=== PATIENT | male | born 1995 | race Two or more races ===

== ENCOUNTER 2016-12-30 21:44 | Emergency (ER) | payer SELFPAY ==
--- NOTE | 2016-12-31 01:30 | ER Document Report ---
ED General - General Chief Complaint: Skin Problem Stated Complaint: FACIAL INJURY Notes: Patient is 21-year-old male who presents with 2 months of a rash over the bilateral face. Describes the area as having a burning, constant sensation. He has tried [id number] creams without improvement. Nothing worsens the symptoms. States he's intermittently had these symptoms for the past several years. He has not had any fever, vomiting, or constitutional symptoms. He has not seen a primary care doctor regarding today's concerns. TRAVEL OUTSIDE OF THE [place] IN LAST 30 DAYS: No - Related Data Allergies/Adverse Reactions: No Known Allergies Allergy (Unverified 12/30/16 21:58) Past Medical History - General Information source: Patient - Social History Smoking Status: Never Smoker Frequency of alcohol use: None Drug Abuse: None Lives with: Family Family History: Reviewed & Not Pertinent Patient has suicidal ideation: No Patient has homicidal ideation: No Renal/ Medical History: Denies: Hx Peritoneal Dialysis Review of Systems - Review of Systems Notes: Constitutional: Negative for fever. HENT: Negative for sore throat. Eyes: Negative for visual changes. Cardiovascular: Negative for chest pain. Respiratory: Negative for shortness of breath. Gastrointestinal: Negative for abdominal pain, vomiting or diarrhea. Genitourinary: Negative for dysuria. Musculoskeletal: Negative for back pain. Skin: Positive for rash. Neurological: Negative for headaches, weakness or numbness. 10 point ROS negative except as marked above and in HPI. Physical Exam - Vital signs Vitals: Temp Pulse Resp BP Pulse Ox 98.3 F 56 L 16 115/71 100 12/30/16 21:58 12/30/16 21:58 12/30/16 21:58 12/30/16 21:58 12/30/16 21:58 Interpretation: Normal Notes: PHYSICAL EXAMINATION: GENERAL: Well-appearing, well-nourished and in no acute distress. HEAD: Atraumatic, normocephalic. EYES: sclera anicteric, conjunctiva are normal. ENT: Moist mucous membranes. NECK: Normal range of motion LUNGS: Normal work of breathing HEART: 2+ radial pulses bilaterally EXTREMITIES: no pitting or edema. No cyanosis. NEUROLOGICAL: No focal neurological deficits. Moves all extremities spontaneously and on command. PSYCH: Normal mood, normal affect. SKIN: Warm, Dry, normal turgor, papules over the bilateral cheeks and left forehead with associated erythema Course - Re-evaluation Re-evalutation: 12/31/16 01:31 Patient presents with a rash over his bilateral face, nostrils and forehead consistent with likely cutaneous acne with associated inflammation. He is otherwise well appearance, no additional findings on exam. Will trial a course of triamcinolone and I have instructed the patient on handwashing and not to pick the affected areas.At this time will discharge with return precautions and follow-up recommendations. Verbal discharge instructions given a the bedside and opportunity for questions given. Medication warnings reviewed. Patient is in agreement with this plan and has verbalized understanding of return precautions and the need for primary care follow-up in the next 24-72 hours. - Vital Signs Vital signs: Temp Pulse Resp BP Pulse Ox 98.3 F 56 L 16 115/71 100 12/30/16 21:58 12/30/16 21:58 12/30/16 21:58 12/30/16 21:58 12/30/16 21:58 Discharge - Discharge Clinical Impression: Facial rash Condition: Good Disposition: HOME, SELF-CARE Additional Instructions: Por favor aplique la crema que le ko prescrito 3 veces al da a las reas afectadas. Regresar si usted desarrolla fiebre> 101, vmitos persistentes, desmayarse, o tiene otros sntomas que son preocupantes para usted Prescriptions: Triamcinolone Acetonide 80 gm TP TID #80 cream.gm.
[2016-12-31 02:09] VITALS: BP 110/64
== END 2016-12-31 02:08 | disposition home or self-care (01) ==
LOC: ER 21:44
DX: R21 Rash and other nonspecific skin eruption (principal)
CPT/HCPCS: 99283

== ENCOUNTER 2017-01-06 16:00 | Emergency (ER) | payer SELFPAY ==
--- NOTE | 2017-01-06 18:42 | ER Document Report ---
HPI - HPI Patient complains to provider of: LEFT FLANK PAIN Onset: Other - months Onset/Duration: Persistent Quality of pain: Achy Pain Level: 3 Context: Patient presents to the emergency department with request for medication refill. He was here almost 2 weeks ago he received triamcinolone for his acne. Patient reports symptoms are getting better but he has new areas cropping up. He denies other symptoms such as fever vomiting diarrhea. All translation was done via [employer] interpretation line and RN. Associated Symptoms: None Exacerbated by: Denies Relieved by: Denies Similar symptoms previously: No Recently seen / treated by doctor: No - DERM Skin Color: Normal, Donora Past Medical History - General Information source: Patient - Social History Smoking Status: Never Smoker Chew tobacco use (# tins/day): No Frequency of alcohol use: None Drug Abuse: None Family History: Reviewed & Not Pertinent Patient has suicidal ideation: No Patient has homicidal ideation: No - Medical History Medical History: Negative Renal/ Medical History: Denies: Hx Peritoneal Dialysis Surgical Hx: Negative Vertical Provider Document - CONSTITUTIONAL Agree With Documented VS: Yes Exam Limitations: No Limitations General Appearance: WD/WN - INFECTION CONTROL TRAVEL OUTSIDE OF THE [place] IN LAST 30 DAYS: No - HEENT HEENT: Atraumatic, Normocephalic. negative: Conjuctival Injection - NECK Neck: Normal Inspection, Supple - RESPIRATORY Respiratory: No Respiratory Distress O2 Sat by Pulse Oximetry: 98 - MUSCULOSKELETAL/EXTREMETIES Musculoskeletal/Extremeties: MAEW, FROM - NEURO Level of Consciousness: Awake, Alert, Appropriate - DERM Integumentary: Rash - scattered facial acne noted, no pustules left hand with scattered several warts noted, no open wounds, brisk cap refill Course - Re-evaluation Re-evalutation: 01/06/17 19:19 Patient instructed on treatment via [employer]. I changed cream to differin, which may help his acne resolve. - Vital Signs Vital signs: Temp Pulse Resp BP Pulse Ox 98.4 F 57 L 16 116/71 98 01/06/17 16:34 01/06/17 16:34 01/06/17 16:34 01/06/17 16:34 01/06/17 16:34 Discharge - Discharge Clinical Impression: Facial rash Acne Qualifiers: Acne type: unspecified acne Qualified Code(s): L70.9 - Acne, unspecified Warts Qualifiers: Viral wart type: unspecified viral wart Qualified Code(s): B07.9 - Viral wart, unspecified Condition: Stable Disposition: HOME, SELF-CARE Instructions: Warts ([facility]), Acne ([facility]) Additional Instructions: *You have been treated for a facial rash, acne, warts *Apply medication as prescribed *Obtain over the counter medication for your warts to your hand *Monitor the site for signs of infection such as increasing pain, redness, swelling, warmth *Keep your skin clean *Follow up with a primary care provider or accounts payable specialist within one week for recheck *Return to ED for signs of infection, worsening condition, changes, needs Prescriptions: Adapalene [Differin] 45 gm TP DAILY #1 gel..gram.
[2017-01-06 19:56] VITALS: BP 116/62
== END 2017-01-06 19:56 | disposition home or self-care (01) ==
LOC: ER 16:00
DX: L70.9 Acne, unspecified (principal); B07.9 Viral wart, unspecified; R21 Rash and other nonspecific skin eruption
CPT/HCPCS: 99282